=== PATIENT | female | born 1940 | race Caucasian/White ===

== ENCOUNTER 2017-10-25 12:10 | Inpatient (IN) | payer MEDICARE, MEDICAID ==
--- NOTE | 2017-10-25 12:37 | ED Physician Chart ---
ED Chief Complaint/HPI - Patient Information Date Seen:: 10/25/17 Time Seen:: 12:30 Chief Complaint:: placement in a fpc facility History of Present Illness:: Patient's had dementia increasing in severity for last 7-8 years. She has been living with her daughter and son-in-law for last 2 years. She is here for placement in a fpc facility. Historian:: Family Member Review:: Nurse's Note Reviewed ED Review of Systems - Review of Systems General/Constitutional: No fever, No chills, No weight loss, No weakness, No diaphoresis, No edema, No loss of appetite Skin: No skin lesions, No rash, No bruising Head: No headache, No light-headedness Eyes: No loss of vision, No pain, No diplopia ENT: No earache, No nasal drainage, No sore throat, No tinnitus Neck: No neck pain, No swelling, No thyromegaly, No stiffness, No mass noted Cardio Vascular: No chest pain, No palpitations, No PND, No orthopnea, No edema Pulmonary: No SOB, No cough, No sputum, No wheezing GI: No nausea, No vomiting, No diarrhea, No pain, No melena, No hematochezia, No constipation, No hematemesis G/U: No dysuria, No frequency, No hematuria Musculoskeletal: No bone or joint pain, No back pain, No muscle pain Endocrine: No polyuria, No polydipsia Psychiatric: Prior psych history, No prior psych history, No depression, No anxiety, No suicidal ideation, Other (history of dementia) Hematopoietic: No bruising, No lymphadenopathy Allergic/Immuno: No urticaria, No angioedema Neurological: No syncope, No focal symptoms, No weakness, No paresthesia, No headache, No seizure, No dizziness, No confusion, No vertigo ED Past Medical History - Past Medical History Past Medical History: HTN, Other (osteoporosis; dislodged right breast implant) Family History: Cancer Social History: Other (former smoker; formerly drank alcohol socially) Surgical History: other (breast implants) Psychiatricy History: Dementia Medication: Reviewed Family Medical History - Family Member Daughter History Unknown: Yes ED Physical Exam - Physical Examination General/Constitutional: Awake, Well-developed, well-nourished, Alert, No distress, Non-toxic appearing, Ambulatory Other Gen/Cons comments:: Patient is alert; not know the year Head: Atraumatic Eyes: Lids, conjuctiva normal, PERRL, EOMI Skin: Nl inspection, No rash, No skin lesions, No ecchymosis, Well hydrated, No lymphadenopathy ENMT: External ears, nose nl, Nasal exam nl, Lips, teeth, gums nl Neck: Nontender, Full ROM w/o pain, No JVD, No nuchal rigidity, No bruit, No mass, No stridor Respiratory: Nl effort/Exclusion, Clear to Auscultation, No Wheeze/Rhonchi/Rales Cardio Vascular: RRR, No murmur, gallop, rubs, NL S1 S2 GI: No tenderness/rebounding/guarding, No organomegaly, No hernia, Normal BS's, Nondistended, No mass/bruits, No McBurney tenderness : No CVA tenderness Extremities: No tenderness or effusion, Full ROM, normal strength in all extremities, No edema, Normal digits & nails Neuro/Psych: Alert/oriented, DTR's symmetric, Normal sensory exam, Normal motor strength, Judgement/insight normal, Mood normal, Normal gait, No focal deficits Misc: Normal back, No paraspinal tenderness ED Labs/Radiology/EKG Results - Lab Results Results: Laboratory Results - last 24 hr 10/25/17 10/25/17 12:45 12:45 WBC 5.1 RBC 4.19 Hgb 13.3 Hct 38.4 L MCV 91.7 MCH 31.7 H MCHC Differential 34.5 RDW 12.1 Plt Count 229 MPV 6.9 Neutrophils % 56.2 Lymphocytes % 36.4 Monocytes % 6.2 Eosinophils % 0.5 Basophils % 0.7 Sodium 137 Potassium 3.7 Chloride 104 Carbon Dioxide 25.5 Anion Gap 11.2 BUN 14 Creatinine 0.9 Est GFR ( Amer) TNP Est GFR (Non-Af Amer) TNP BUN/Creatinine Ratio 15.6 Glucose 96 Calcium 9.6 Total Bilirubin 0.5 AST 15 ALT 12 Alkaline Phosphatase 47 Total Protein 6.1 Albumin 4.1 Globulin 2.0 Albumin/Globulin Ratio 2.1 H - EKG Interpretations Rate & Rhythm: normal sinus rhythm with a rate of 55 [place]: normal Comments:: Right ventricular prominence ED Septic Shock - . Is Septic Shock (SBP<90, OR Lactate>4 mmol\L) present?: No ED Reassessment (Disposition) - Reassessment Reassessment Condition:: Unchanged - Diagnosis Diagnosis:: Altered mental status; dementia - Patient Disposition Admitted to:: Med/Surg Spoke to:: Richard Linares Admitting Medical Physician:: Richard Linares Condition at Disposition:: Unchanged
[2017-10-25 12:55] LABS: % BASOPHILS 0.7 % (0.0-2.0); % EOSINOPHILS 0.5 % (0.0-5.0); % LYMPHOCYTES 36.4 % (20.0-50.0); % MONOCYTES 6.2 % (2.0-10.0); % NEUTROPHILS 56.2 % (40.0-80.0); HEMATOCRIT 38.4 % (41.0-60); HEMOGLOBIN 13.3 gm/dL (12-16); LYMPHOCYTE ABSOLUTE 1.9 Th/cmm (1.5-3.0); MEAN CELL VOLUME 91.7 fl (81-100); MEAN CORPUSCULAR HEMOGLOBIN 31.7 pg (27.0-31.0); MEAN CORPUSCULAR HGB CONC 34.5 pg (28.0-36.0); MEAN PLATELET VOLUME 6.9 fl; MONOCYTE ABSOLUTE 0.3 Th/cmm (0.3-1.0); NEUTROPHILE ABSOLUTE 2.9 Th/cmm (1.8-8.0); PLATELET COUNT 229 Th/cmm (150-400); RED BLOOD COUNT 4.19 Mil/cmm (3.80-5.20); RED CELL DISTRIBUTION WIDTH 12.1 % (11.5-20.0); WHITE BLOOD COUNT 5.1 Th/cmm (4.8-10.8)
[2017-10-25 13:11] LABS: ALB/GLOB RATIO 2.1 (1.0-1.8); ALBUMIN 4.1 gm/dL (3.7-5.3); ALKALINE PHOSPHATASE 47 U/L (34-104); ANION GAP 11.2 (7.0-16.0); BILIRUBIN,TOTAL 0.5 mg/dL (0.3-1.0); BUN - UREA NITROGEN 14 mg/dL (7-25); CALCIUM SERUM 9.6 mg/dL (8.6-10.3); CARBON DIOXIDE 25.5 mEq/L (21.0-31.0); CHLORIDE 104 mEq/L (98-107); CREATININE - SERUM 0.9 mg/dL (0.6-1.2); GLUCOSE 96 mg/dL (70-105); POTASSIUM SERUM 3.7 mEq/L (3.5-5.1); SGOT 15 U/L (13-39); SGPT/ALT 12 U/L (7-52); SODIUM SERUM 137 mEq/L (136-145); TOTAL PROTEIN,SERUM 6.1 gm/dL (6.0-8.3)
[2017-10-25] MEDS: D5-0.45NS 1,000 ML IV SCH (18:26)
[2017-10-26 05:48] LABS: % BASOPHILS 0.4 % (0.0-2.0); % EOSINOPHILS 0.6 % (0.0-5.0); % LYMPHOCYTES 41.1 % (20.0-50.0); % MONOCYTES 6.7 % (2.0-10.0); % NEUTROPHILS 51.2 % (40.0-80.0); LYMPHOCYTE ABSOLUTE 1.9 Th/cmm (1.5-3.0); MEAN CELL VOLUME 91.9 fl (81-100); MEAN CORPUSCULAR HEMOGLOBIN 31.5 pg (27.0-31.0); MEAN CORPUSCULAR HGB CONC 34.2 pg (28.0-36.0); MEAN PLATELET VOLUME 7.1 fl; MONOCYTE ABSOLUTE 0.3 Th/cmm (0.3-1.0); NEUTROPHILE ABSOLUTE 2.5 Th/cmm (1.8-8.0); PLATELET COUNT 200 Th/cmm (150-400); RED BLOOD COUNT 4.13 Mil/cmm (3.80-5.20); RED CELL DISTRIBUTION WIDTH 11.7 % (11.5-20.0); WHITE BLOOD COUNT 4.7 Th/cmm (4.8-10.8)
[2017-10-26 06:03] LABS: ALB/GLOB RATIO 2.1 (1.0-1.8); ALBUMIN 3.8 gm/dL (3.7-5.3); ALKALINE PHOSPHATASE 41 U/L (34-104); ANION GAP 7.6 (7.0-16.0); BILIRUBIN,TOTAL 0.5 mg/dL (0.3-1.0); BUN - UREA NITROGEN 15 mg/dL (7-25); CALCIUM SERUM 8.9 mg/dL (8.6-10.3); CARBON DIOXIDE 28.2 mEq/L (21.0-31.0); CHLORIDE 106 mEq/L (98-107); CREATININE - SERUM 0.9 mg/dL (0.6-1.2); GLUCOSE 100 mg/dL (70-105); POTASSIUM SERUM 3.8 mEq/L (3.5-5.1); SGOT 14 U/L (13-39); SGPT/ALT 11 U/L (7-52); SODIUM SERUM 138 mEq/L (136-145); TOTAL PROTEIN,SERUM 5.6 gm/dL (6.0-8.3)
--- NOTE | 2017-10-26 08:34 | Diagnostic Imaging Report ---
Portable chest x-ray Time: 1747 History: Cough Allowing for portable technique the heart size is normal. No focal pulmonary parenchymal processes. No hilar or mediastinal abnormalities. Impression: No acute abnormalities.
[2017-10-26] MEDS: Calcium Carb/Vit D 500 mg/200 U Tab PO SCH (08:50)
--- NOTE | 2017-10-26 11:33 | Consultation ---
DATE OF CONSULTATION: 10/26/2017 PSYCHIATRIC CONSULT AGE: 77. SEX: Female. PHYSICIAN: Dr. Linares. [facility] ATTENDANT: Dr. Flower. REASON FOR THE CONSULT: Confusion. HISTORY OF PRESENT ILLNESS: The patient is a 77-year-old female who was brought into the hospital by her daughter because of confusion. The patient's daughter has been taking care of the patient, but the patient lately has not been able to follow directions and has been more confused. She also has not been able to be cooperative or compliant with her medications. The patient also is having episodes of irritability and anger. She also has been having periods of anxiety. Chart reviewed and patient interviewed and discussed the patient's condition with the staff and reviewed records and labs. The patient is confused. She also is suspicious and is paranoid and fearful. She is calm and able to follow directions at times, but most of the time she is confused and unable to follow any of my directions. She also did not even know what is her date. PAST PSYCHIATRIC HISTORY: None. PAST MEDICAL HISTORY: The patient has history of hypertension. FAMILY HISTORY: Family history of cancer. SOCIAL HISTORY: The patient lives with her daughter. The patient is . No known alcohol or drug use. ALLERGIES: No known allergies. MENTAL STATUS EXAM: The patient appears slightly older than her stated age. Anxious. Irritable mood. Confused. Kept playing with things in her hand. The patient did not answer questions regarding hallucinations or delusions or regarding suicide or homicide. The patient is alert, but disoriented to time, place, person and situation. Impaired immediate, recent and remote memories. ASSESSMENT: PRIMARY DIAGNOSIS: Unspecified psychosis. SECONDARY DIAGNOSIS: Dementia, moderate to severe. TREATMENT PLAN: We will monitor the patient's behavior closely. Also, the patient will need admission to Geropsych Unit. Also, we will follow up. Thanks to Dr. Linares and will follow up with you. [facility]# [id number]
--- NOTE | 2017-10-26 16:40 | History & Physical ---
ADMIT DATE: 10/26/2017 DICTATED FOR: Dr. Linares. CHIEF COMPLAINT: Placement in fci facility. HISTORY OF PRESENT ILLNESS: This is a 77-year-old female who is admitted here to the med/surg unit due to increasing of confusion for the last 7-8 years. Per daughter at bedside, patient has been having severe increasing in dementia and requested for patient to be placed in a fci. PAST MEDICAL HISTORY: Hypertension, osteoporosis, dislodged right breast implant. FAMILY HISTORY: Noncontributory. SOCIAL HISTORY: The patient is a former smoker and former drinker. PAST SURGICAL HISTORY: Bilateral breast implants. MEDICATIONS: Please see medication list. REVIEW OF SYSTEMS: Unable to obtain, patient is confused. PHYSICAL EXAMINATION: GENERAL: The patient is an elderly female, awake, alert, no apparent distress. VITAL SIGNS: Temperature 97.8, heart rate 70, blood pressure 133/62, respirations 17, and O2 98%. HEENT: Head normocephalic, atraumatic. NECK: Supple. No mass. LUNGS: Clear bilaterally. ABDOMEN: Soft, nontender. LABORATORY DATA: WBC 4.7, H and H 13.0 and 38.0, platelet of 200. Sodium 138, potassium 3.8, chloride 106, BUN 15, and creatinine 0.9. ASSESSMENT: Dementia, hypertension and osteoporosis. PLAN: The case management to arrange patient to be placed in a fci to get psychiatric consultation. JOB# [id number]
[2017-10-26 18:59] LABS: A1C % 5.9 % (4.0-6.0)
[2017-10-27 07:11] LABS: FOLIC ACID 16.2 ng/mL (>3.0)
[2017-10-27] MEDS: Calcium Carb/Vit D 500 mg/200 U Tab PO SCH (09:08)
--- NOTE | 2017-10-27 12:01 | General Progress Note ---
Subjective - Review of Systems Events since last encounter: patient with h/o dementia is confused denies pain Objective - Results Result Diagrams: 10/26/17 05:10 10/26/17 05:10 Recent Labs: Laboratory Last Values WBC 4.7 Th/cmm (4.8-10.8) L 10/26/17 05:10 RBC 4.13 Mil/cmm (3.80-5.20) 10/26/17 05:10 Hgb 13.0 gm/dL (12-16) 10/26/17 05:10 Hct 38.0 % (41.0-60) L 10/26/17 05:10 MCV 91.9 fl (81-100) 10/26/17 05:10 MCH 31.5 pg (27.0-31.0) H 10/26/17 05:10 MCHC Differential 34.2 pg (28.0-36.0) 10/26/17 05:10 RDW 11.7 % (11.5-20.0) 10/26/17 05:10 Plt Count 200 Th/cmm (150-400) 10/26/17 05:10 MPV 7.1 fl 10/26/17 05:10 Neutrophils % 51.2 % (40.0-80.0) 10/26/17 05:10 Lymphocytes % 41.1 % (20.0-50.0) 10/26/17 05:10 Monocytes % 6.7 % (2.0-10.0) 10/26/17 05:10 Eosinophils % 0.6 % (0.0-5.0) 10/26/17 05:10 Basophils % 0.4 % (0.0-2.0) 10/26/17 05:10 Sodium 138 mEq/L (136-145) 10/26/17 05:10 Potassium 3.8 mEq/L (3.5-5.1) 10/26/17 05:10 Chloride 106 mEq/L (98-107) 10/26/17 05:10 Carbon Dioxide 28.2 mEq/L (21.0-31.0) 10/26/17 05:10 Anion Gap 7.6 (7.0-16.0) 10/26/17 05:10 BUN 15 mg/dL (7-25) 10/26/17 05:10 Creatinine 0.9 mg/dL (0.6-1.2) 10/26/17 05:10 Est GFR ( Amer) TNP 10/26/17 05:10 Est GFR (Non-Af Amer) TNP 10/26/17 05:10 BUN/Creatinine Ratio 16.7 10/26/17 05:10 Glucose 100 mg/dL (70-105) 10/26/17 05:10 Hemoglobin A1c % 5.9 % (4.0-6.0) 10/26/17 05:10 Calcium 8.9 mg/dL (8.6-10.3) 10/26/17 05:10 Total Bilirubin 0.5 mg/dL (0.3-1.0) 10/26/17 05:10 AST 14 U/L (13-39) 10/26/17 05:10 ALT 11 U/L (7-52) 10/26/17 05:10 Alkaline Phosphatase 41 U/L (34-104) 10/26/17 05:10 Troponin I < 0.01 ng/mL (0.01-0.05) L 10/25/17 12:45 Total Protein 5.6 gm/dL (6.0-8.3) L 10/26/17 05:10 Albumin 3.8 gm/dL (3.7-5.3) 10/26/17 05:10 Globulin 1.8 gm/dL 10/26/17 05:10 Albumin/Globulin Ratio 2.1 (1.0-1.8) H 10/26/17 05:10 Vitamin B12 369 pg/mL (232-1245) 10/25/17 12:45 Folic Acid 16.2 ng/mL (>3.0) 10/25/17 12:45 TSH 0.47 uIU/ml (0.34-5.60) 10/25/17 12:45 - Physical Exam Vitals and I&O: Vital Signs Temp 98.3 F 10/27/17 11:50 Pulse 85 10/27/17 11:50 Resp 18 10/27/17 11:50 BP 164/77 10/27/17 11:50 Pulse Ox 97 10/27/17 11:50 Intake & Output 10/26/17 10/27/17 10/27/17 18:59 06:59 18:59 Intake Total 600 500 Balance 600 500 Weight (lbs) 63.503 kg 63.503 kg Intake: Oral 600 250 Other 250 Other: # Voids 5 2 # Bowel Movements 0 Weight Source Bedscale Bedscale Active Medications: Current Medications Calcium/Vitamin D (Oscal W/Vitamin D) 1 tab PO DAILY DEMETRIA Stop: 12/25/17 08:59 Last Admin: 10/27/17 09:08 Dose: 1 tab Dextrose/Sodium Chloride (D5-0.45ns) 1,000 mls @ 50 mls/hr IV .Q20H DEMETRIA Stop: 12/24/17 17:14 Last Admin: 10/25/17 18:26 Dose: 50 mls/hr Lorazepam (Ativan) 1 mg IVP Q4HR PRN; Protocol PRN Reason: Anxiety Stop: 12/24/17 17:03 Last Admin: 10/27/17 01:29 Dose: 1 mg Losartan Potassium (Cozaar) 50 mg PO DAILY DEMETRIA Stop: 12/25/17 08:59 Last Admin: 10/27/17 09:08 Dose: 50 mg Assessment/Plan - Problem List Patient Problems: All Active Problems FAILURE TO THRIVE (Acute)
[2017-10-28] MEDS: Calcium Carb/Vit D 500 mg/200 U Tab PO SCH (09:00)
[2017-10-28] MEDS: D5-0.45NS 1,000 ML IV SCH (19:57)
[2017-10-29] MEDS: Calcium Carb/Vit D 500 mg/200 U Tab PO SCH (08:59)
--- NOTE | 2017-10-29 09:39 | Progress Notes ---
DATE: 10/29/2017 Chart reviewed and the patient interviewed. Also discussed the patient's condition with the staff and reviewed records and labs. The patient is still confused and anxious but easy to redirect. The patient also is less irritable. She still needs redirections. Otherwise, the patient is compliant with taking her medications with no side effects of medications. The patient currently is only taking losartan and Ativan on a p.r.n. basis. We will continue working on monitoring her behavior and the patient will need placement. JOB# [id number]
--- NOTE | 2017-10-29 10:51 | Infectious Disease Prog Note ---
Infectious Disease Subjective - Review of Systems Service Date: 10/29/17 Subjective: No new change, no fever. no CP, no SOB. Infectious Disease Objective - Results Result Diagrams: 10/26/17 05:10 10/26/17 05:10 Recent Labs: Laboratory Last Values WBC 4.7 Th/cmm (4.8-10.8) L 10/26/17 05:10 RBC 4.13 Mil/cmm (3.80-5.20) 10/26/17 05:10 Hgb 13.0 gm/dL (12-16) 10/26/17 05:10 Hct 38.0 % (41.0-60) L 10/26/17 05:10 MCV 91.9 fl (81-100) 10/26/17 05:10 MCH 31.5 pg (27.0-31.0) H 10/26/17 05:10 MCHC Differential 34.2 pg (28.0-36.0) 10/26/17 05:10 RDW 11.7 % (11.5-20.0) 10/26/17 05:10 Plt Count 200 Th/cmm (150-400) 10/26/17 05:10 MPV 7.1 fl 10/26/17 05:10 Neutrophils % 51.2 % (40.0-80.0) 10/26/17 05:10 Lymphocytes % 41.1 % (20.0-50.0) 10/26/17 05:10 Monocytes % 6.7 % (2.0-10.0) 10/26/17 05:10 Eosinophils % 0.6 % (0.0-5.0) 10/26/17 05:10 Basophils % 0.4 % (0.0-2.0) 10/26/17 05:10 Sodium 138 mEq/L (136-145) 10/26/17 05:10 Potassium 3.8 mEq/L (3.5-5.1) 10/26/17 05:10 Chloride 106 mEq/L (98-107) 10/26/17 05:10 Carbon Dioxide 28.2 mEq/L (21.0-31.0) 10/26/17 05:10 Anion Gap 7.6 (7.0-16.0) 10/26/17 05:10 BUN 15 mg/dL (7-25) 10/26/17 05:10 Creatinine 0.9 mg/dL (0.6-1.2) 10/26/17 05:10 Est GFR ( Amer) TNP 10/26/17 05:10 Est GFR (Non-Af Amer) TNP 10/26/17 05:10 BUN/Creatinine Ratio 16.7 10/26/17 05:10 Glucose 100 mg/dL (70-105) 10/26/17 05:10 Hemoglobin A1c % 5.9 % (4.0-6.0) 10/26/17 05:10 Calcium 8.9 mg/dL (8.6-10.3) 10/26/17 05:10 Total Bilirubin 0.5 mg/dL (0.3-1.0) 10/26/17 05:10 AST 14 U/L (13-39) 10/26/17 05:10 ALT 11 U/L (7-52) 10/26/17 05:10 Alkaline Phosphatase 41 U/L (34-104) 10/26/17 05:10 Troponin I < 0.01 ng/mL (0.01-0.05) L 10/25/17 12:45 Total Protein 5.6 gm/dL (6.0-8.3) L 10/26/17 05:10 Albumin 3.8 gm/dL (3.7-5.3) 10/26/17 05:10 Globulin 1.8 gm/dL 10/26/17 05:10 Albumin/Globulin Ratio 2.1 (1.0-1.8) H 10/26/17 05:10 Vitamin B12 369 pg/mL (232-1245) 10/25/17 12:45 Folic Acid 16.2 ng/mL (>3.0) 10/25/17 12:45 TSH 0.47 uIU/ml (0.34-5.60) 10/25/17 12:45 - Physical Exam Vitals and I&O: Vital Signs Temp 97.5 F 10/29/17 08:00 Pulse 69 10/29/17 08:59 Resp 20 10/29/17 08:00 BP 147/58 10/29/17 08:59 Pulse Ox 98 10/29/17 08:00 Intake & Output 08/02/18 08/03/18 08/03/18 18:59 06:59 18:59 Intake Total 650 240 Balance 650 240 Weight (lbs) 63.503 kg 63.503 kg Intake: Oral 650 240 Other: # Voids 4 2 Stool Characteristics Soft Soft Weight Source Estimated Estimated Active Medications: Current Medications Calcium/Vitamin D (Oscal W/Vitamin D) 1 tab PO DAILY DEMETRIA Stop: 12/25/17 08:59 Last Admin: 10/29/17 08:59 Dose: 1 tab Dextrose/Sodium Chloride (D5-0.45ns) 1,000 mls @ 50 mls/hr IV .Q20H DEMETRIA Stop: 12/24/17 17:14 Last Admin: 10/28/17 19:57 Dose: Not Given Lorazepam (Ativan) 1 mg IVP Q4HR PRN; Protocol PRN Reason: Anxiety Stop: 12/24/17 17:03 Last Admin: 10/27/17 01:29 Dose: 1 mg Losartan Potassium (Cozaar) 50 mg PO DAILY DEMETRIA Stop: 12/25/17 08:59 Last Admin: 10/29/17 08:59 Dose: 50 mg General: no acute distress, well developed, well nourished HEENT: atraumatic, normocephalic, PERRLA, EOMI Neck: supple, no thyromegaly Cardiovascular: S1S2, regular Lungs: clear to auscultation bilaterally, clear to percussion Abdomen: soft, no tender, no distended, no mass, no rebound Extremities: no cyanosis, no clubbing, no edema Neurological: awake, alert, oriented Skin: intact Infectious Disease Assmt/Plan - Problem List Patient Problems: All Active Problems FAILURE TO THRIVE (Acute) - Assessment Assessment: 1. HTN. 2. Failure to thrive. - Plan Plan: DC plan.
--- NOTE | 2017-10-30 07:14 | Progress Notes ---
DATE: 10/27/2017 SUBJECTIVE: Chart reviewed and the patient interviewed. Also, discussed the patient's condition with the staff and reviewed records and labs. The patient is still confused. The patient also is still withdrawn and is interacting minimally with others. The patient also is restless and is having difficulty with following directions because of her confusion. The patient also still needs a lot of assistance with her ADLs. Otherwise, the patient is compliant with taking medications with no side effects of medications. ASSESSMENT: The patient is still confused and considered to be ____ disabled. TREATMENT PLAN: At this time, I recommend that the patient either go to [facility] or to a half-way facility to monitor her behavior and also to adjust psychotropic medications. Also, recommended to continue with following and adjusting her medications. [facility]# [id number]
--- NOTE | 2017-10-30 18:43 | Progress Notes ---
DATE: 10/28/2017 SUBJECTIVE: Chart reviewed and the patient interviewed. Also discussed the patient's condition with the staff and reviewed records and labs. The patient is still depressed and confused. The patient also is still forgetful and have difficulty following directions because of her forgetfulness and confusion. She also is interacting minimally. Otherwise, the patient is compliant with taking her medications with no side effects of medications. ASSESSMENT: The patient is still confused and needs close monitoring. TREATMENT PLAN: Continue to monitor her behavior and condition and continue adjusting psychotropic medications. [facility]# [id number]
== END 2017-10-29 20:45 | DRG 641 ==
LOC: ER 12:10 → MSI 14:22
PROVIDERS: ADMIT Internal Medicine; ATTEND Internal Medicine
DX: R62.7 Adult failure to thrive (principal); F03.91 Unspecified dementia, unspecified severity, with behavioral disturbance; I10 Essential (primary) hypertension; M81.0 Age-related osteoporosis without current pathological fracture; R41.82 Altered mental status, unspecified; F29 Unspecified psychosis not due to a substance or known physiological condition; F41.9 Anxiety disorder, unspecified; Z87.891 Personal history of nicotine dependence; Z98.82 Breast implant status
CPT/HCPCS: 36415-UA; 71045-TC; 80053-TC; 82607-90; 82746-90; 83036-90; 84443-TC; 84484-TC; 85025-TC; 93005; J2060; Z7610